=== PATIENT | female | born 1990 | race Caucasian/White ===

== ENCOUNTER 2019-08-15 07:37 | Outpatient (CLI) | payer OTHER, SELFPAY ==
--- NOTE | 2019-08-15 07:56 | US_ITS ---
WS: [id number] OB ultrasound, 08/15/2019 Clinical Data: UTERINE SIZE DATE DISCREPANCY/SECOND TRIMESTER Comparison: None. Findings: There is a single interuterine . heart rate is 164 beats per minute. The presentation is vertex and the placenta is anterior and grade 0. There is a normal amount of amni otic fluid. The estimated gestational age 16w0d is with an FIORDALIZA of approximately 01/30/2020. The estimated weight is 138 g or approximately 5 ounces. US/US OB <= 14 weeks fetus [id number] Impression: 1. Single interuterine . 2. Estimated gestational age of 16w0d with an FIORDALIZA of 01/30/2020. 3. heart rate 164 beats per minute.
== END 2019-08-15 07:38 | disposition home or self-care (01) ==
LOC: RAD 07:43
PROVIDERS: PCP Family Medicine; Visit Provider Family Medicine
DX: O26.842 Uterine size-date discrepancy, second trimester (principal); Z3A.16 16 weeks gestation of pregnancy
CPT/HCPCS: 76801

== ENCOUNTER 2019-09-19 08:47 | Outpatient (CLI) | payer OTHER, SELFPAY ==
--- NOTE | 2019-09-19 08:57 | US_ITS ---
WS: [id number] OB ultrasound, 09/19/2019 Clinical Data: SUPERVISION OF NORMAL Comparison: OB ultrasound, 08/15/2019 Findings: There is a single intrauterine in the vertex presentation. The placenta is Anterior and gra de 0. There is a normal amount of amnionic fluid. The heart rate is 157 beats per minute. Measurements of growth and development: BPD: 4.8 cm HC: 18.3 cm AC: 16.3 cm FL: 3.5 cm The estimated weight is 403 or approximately 14 ounces. The estimated gestational age is 21w0d with an FIORDALIZA of approximately 01/30/2020. anatomy show a normal stomach, kidneys, bladder, cord insertion, three-vessel cord, entire spin e, four-chamber heart, lateral cerebral ventricles, cerebellum and cisterna magna. US/US OB >= 14 weeks fetus [id number] Impression: 1. Single intrauterine in vertex presentation. 2. Estimated gestational age 21w0d with an FIORDALIZA of 01/30/2020. 3. heart rate 157 beats per minute.
== END 2019-09-19 08:48 | disposition home or self-care (01) ==
LOC: RAD 08:52
PROVIDERS: PCP Family Medicine; Visit Provider Nurse Practitioner Family
DX: Z34.92 Encounter for supervision of normal pregnancy, unspecified, second trimester (principal); Z36.9 Encounter for antenatal screening, unspecified; Z3A.21 21 weeks gestation of pregnancy
CPT/HCPCS: 76805

== ENCOUNTER 2020-02-02 19:57 | Inpatient (IN) | payer OTHER, SELFPAY ==
[2020-02-02] VITALS (15 sets, daily range): BP systolic 0–145; BP diastolic 0–76; PULSE 55–81; RESP 15; TEMP 36.8; BMI 29.9
[2020-02-02 21:08] LABS: Basophils % 0.4 %; Eosinophils # 0.1 10^3/uL (0.0-0.8); Eosinophils % 0.7 %; Hematocrit 37.1 % (37.0-47.0); Hemoglobin 12.6 g/dL (11.5-15.3); Lymphocytes # 3.2 10^3/uL (0.8-4.8); Mean Corpuscular Hemoglobin 30.7 pg (28.0-34.0); Mean Corpuscular Volume 90.5 fL (81-99); Mean Platelet Volume 12.5 fL (7.4-10.4); Monocytes # 0.8 10^3/uL (0.2-0.9); Monocytes % 7.6 %; Neutrophils # 6.3 10^3/uL (1.8-7.7); Neutrophils % 60.3 %; Nucleated Red Blood Cells % 0 %; Platelet Count 277 10^3/cmm (130-400); Red Cell Distribution Width 12.9 % (12.1-15.1); White Blood Count 10.5 10^3/uL (4.0-10.0)
[2020-02-02] MEDS: dextrose 5%-lactated ringers 1,000 ML 125 ML IV (22:53)
[2020-02-02] MEDS: oxytocin 30 UNIT/500 ML BAG IV (22:54)
[2020-02-03] VITALS (99 sets, daily range): BP systolic 0–153; BP diastolic 0–78; PULSE 49–98; RESP 16–18; TEMP 36.4–37.1; O2SAT 91–99
--- NOTE | 2020-02-03 01:20 | PC.NURSE ---
Dr. Lynn at bedside
--- NOTE | 2020-02-03 02:17 | PM.OBGYHP ---
Providers/Chief Complaint Admitting Physician: Cleo Lynn MD Primary Care Provider: Cleo Lynn MD Chief Complaint: HPI RESTORATIVE COORDINATOR History of Present Illness Gwen Cooper is a 29 year old female 1 para 0 with an EDC of 01/30/2020. She presented last evening at 40-3/7 weeks gestation for induction of labor secondary to postdates. She began care on 08/03/2019 at 14 weeks gestation, and her course has been completely uncomplicated. Present Details : 1 Para: 0 Date of Last Menstrual Period: 04/25/19 Calculated Date of Delivery: 01/30/20 Gestational Age Based on Last Menstrual Period: 40 Dating criteria OB: LMP confirmed by 2nd trimester US care: good care Ultrasounds: normal mid trimester US Obstetrical complications: none Medical complications OB: none Labs Blood type OB HPI: O (+) positive Rubella: Immune RPR: Negative GBS: Negative HBsAG: Negative Other Lab Information: INITIAL LABS: Blood Type: O+ D (Rh) Type: Positive Antibody Screen: Negative HCT/HB.6/38.3 Pap Test: Normal, high risk HPV negative Rubella: Immune VDRL: Nonreactive Urine Culture/Screen: Negative HBsAg: Negative HIV Counseling/Testing: Negative Hepatitis C: Negative Chlamydia: Negative GC: Negative MSAFP/Multiple Markers: Declined 24-30 WEEK LABS: HCT/HGB: 12.6 Diabetes Screen: 88 Tdap: Received on 10/26/2019 32-36 WEEK LABS: Group B Strep (35-37 weeks): Negative Review of Systems Const: Denies: fever(s) : Denies: vaginal bleeding, vaginal discharge or pelvic pain Medications/Allergies Home Medications Medication Instructions Recorded Confirmed Last Taken Type [id number] 1 tab PO DAILY 02/02/20 02/02/20 02/02/20 History [ Multi] 0930 Allergies Allergy/AdvReac Type Severity Reaction Status Date / Time No Known Allergies Allergy Verified 02/02/20 20:32 PFSH RESTORATIVE COORDINATOR PFSH: Surgical History (Updated 02/03/20 @ 02:26 by Cleo Lynn MD) S/P tonsillectomy Social History (Updated 02/03/20 @ 02:28 by Cleo Lynn MD) Smoking and tobacco status: never smoked Second hand smoke exposure: No Alcohol intake: never Substance/Drug Use: never Adopted: No Caregiver/support person: Yes Lives independently: Yes Household members: significant other Marital status: Number of children: 0 Number of grandchildren: 0 Highest education level completed: High School Graduate service: Yes ([employer]) Other Female Reproductive History: Hx Age of Menarche: 15 Duration of menses: 6-7 days Date of Last Menstrual Period: 04/25/19 Cycle Length: 30 days Menstrual flow: normal/abnormal: normal History History History 1 Term 0 Miscarriages/Ectopic 0 0 Living Children 0 Care FIORDALIZA Calculator Estimated Delivery Date Method Current WG Current Estimate 01/30/20 LMP (Certain) 40w 4d Expected Delivery Route/Plan Vaginal/induction of labor Vitals/I&O/Wt Last Vital Signs Temp 98.3 F 02/02/20 20:42 Pulse 75 02/03/20 01:49 Resp 15 02/02/20 20:42 BP 135/72 02/03/20 01:49 02/02/20 02/02/20 02/03/20 14:59 22:59 06:59 Intake Total 1.600 / 1.600 Balance 1.600 / 1.600 Weight last 48 hrs Weight 169 lb Physical Exam Narrative: EXAM NARRATIVE: For complete physical examination please refer to record. heart tones have a normal baseline with moderate variability, many accelerations and 1 deceleration lasting over a minute with initial monitoring. Patient was spontaneously markie every 2 to 5 minutes and rating them as not painful. Const: COMMON NORMALS: no acute distress, patient oriented x3, no limitations, healthy appearing, alert and well nourished : MANUAL OB EXAM: dilated fingertip, effaced (80%), station -2 and other AMNIOTIC FLUID: no fluid Psych: COMMON NORMALS: mental status grossly normal, Normal thought process present, cooperative, normal affect, speech normal and activity/motor behavior normal MOOD & AFFECT: Yes anxious INSIGHT: Good insight present (Psych) JUDGEMENT: Good judgement present (Psych) Data : 02/02/20 20:27 A&P Assessment and plan (1) Encounter for induction of labor: We had initially discussed Cytotec placement. However, given the deceleration noted with her initial monitoring upon presentation and the fact that she was markie fairly regularly, we decided to observe for an hour. She had no cervical change, therefore low-dose Pitocin was begun. It has been titrated gradually, and she is markie every 2 minutes of moderate to strong intensity. She declines need for pain medication at this time. She actually just experienced spontaneous rupture of membranes productive of clear fluid at 220 this morning. Status: Acute (2) 40 weeks gestation of : Status: Acute (3) Joya gestation with first : Status: Acute Attestations Medical Necessity Statement*: As patient is undergoing induction of labor for postdates and has just experienced spontaneous rupture of membranes, she will need continued inpatient hospitalization. Coding Level of Care Code Acute Passport Application Examiner for Chg Fwd Diagnoses Encounter for induction of labor Z34.90 40 weeks gestation of Z3A.40 Joya gestation with first Z34.90
[2020-02-03] MEDS: ondansetron 2 mg/ML SDV 2 mL 4 MG IVP (02:57)
[2020-02-03] MEDS: fentaNYL 50 mcg/mL INJ 2mL IV ×2 (05:09→05:44)
[2020-02-03] MEDS: lactated ringers 1,000 ML 999 ML IV (05:45)
--- NOTE | 2020-02-03 06:29 | P.ANESASSM_ITS ---
Pre-Anesthetic Assessment Pre-Anesthetic Assessment: Height/Weight: Height 1.6 m Weight 76.657 kg Temp Pulse Resp BP 98.2 F 63 18 117/59 02/03/20 02:30 02/03/20 03:21 02/03/20 05:44 02/03/20 03:21 Preop Diagnosis: Labor Pains Proposed Procedure: epidural Was Beta Usama taken within 24 hours: N/A Social: Social History: No alcohol and No tobacco Exam: Pre-Anes Outpt Exam: alert, oriented x 3, clear to auscultation bilaterally and regular rate & rhythm Airway: Submandibular: WNL Cervical ROM: WNL MP: 1 Dentition: Full Pulmonary: Pulmonary: None reported CV/HEM: CV/HEM: None reported : : None reported Hepatic: Hepatic: None reported GI: GI: None reported Metabolic: Metabolic: None reported Musc/skel: Musc/skel: None reported Neuropsych: Neuropsych: None reported Anesthetic Plan: ASA status: 2 Anesthesia: Eval. for regional block and R egional (specify below) Risk of > 500 ml blood loss (7ml/kg in children): No Meds/Allergies Current Medications: Current Medications Generic Name Dose Route Start Last Admin Trade Name Freq PRN Reason Stop Dose Admin Fentanyl 25 - 100 mcg 02/02/20 20:42 02/03/20 05:44 Sublimaze IV 50 mcg Q1H PRN Administration SEVERE PAIN Dextrose/Lactated Ringer's 1,000 mls @ 125 m ls/hr 02/02/20 20:42 02/03/20 05:46 Dextrose 5%-Lact ated Ringers IV Infused .Q8H PRN Infusion LABOR INDUCTION Oxytocin 30 unit in 500 ml s @ 1 mls/hr 02/02/20 22:07 02/02/20 23:58 Pitocin IV 3 milliunit/min .Q24H PRN 3 mls/hr LABOR INDUCTION Titration Protocol 1 MILLIUNIT/MIN Ondansetron HCl 4 mg 02/02/20 20:42 02/03/20 02:57 Zofran IVP 4 mg Q4H PRN Administration NAUSEA AND VOMITI NG PFSH Anesthesia PFSH: Surgical History (Updated 02/03/20 @ 02:26 by Cleo Lynn MD) S/P tonsillectomy Social History (Updated 02/03/20 @ 02:28 by Cleo Lynn MD) Smoking and tobacco status: never smoked Second hand smoke exposure: No Alcohol intake: never Substance/Drug Use: never Adopted: No Caregiver/support person: Yes Lives independently: Yes Household members: significant other Marital status: Number of children: 0 Number of grandchildren: 0 Highest education level completed: High School Graduate service: Yes ([employer]) Female Reproductive History: Date of last menstrual period: 04/25/19 : 1 Data Anesthesia CBC & Chem 7: 02/02/20 20:27 Other Labs: Laboratory Results - last 48 hr 02/02/20 20:27 WBC 10.5 H RBC 4.10 Hgb 12.6 Hct 37.1 MCV 90.5 MCH 30.7 MCHC 34.0 RDW 12.9 Plt Count 277 MPV 12.5 H Neut % (Auto) 60.3 Lymph % (Auto) 30.0 Beadle % (Auto) 7.6 Eos % (Auto) 0.7 Baso % (Auto) 0.4 Neut # (Auto) 6.3 Lymph # (Auto) 3.2 Beadle # (Auto) 0.8 Eos # (Auto) 0.1 Baso # (Auto) 0.0 Nucleated RBC % (auto) 0 Nucleated RBCs # 0.0 Cardiac Studies: No Data to Display
--- NOTE | 2020-02-03 07:08 | ANES.PROC ---
Anesthesia Procedures Procedure/Date: 02/03/20 epidural Procedure Narrative: during the First insertion of epidural catheter blood was noted to be in the epidural tubing. Tubing removed and replaced at the same level. patient tolerated well, epidural complete, bolus given, epidural pump initiated with ORDER TO DELIVERY SUPERVISOR education given, vitals taken during procedure using OBIX system and satisfactory throughout, patient admits to decrease pain, report of procedure to OB RN Epidural: Time Out Performed: Yes Consents Signed: Procedure Consent Consent: requested by attending/covering physician, from patient, risks and benefits reviewed and patient agrees to proceed Lumbar Level: L3-L4 Epidural position: sitting Epidural procedure: sterile prep of area, 1% lidocaine to numb the area (3 mL), 18 g needle, negative for paresthesia passed, neg for paresthesia, test dose given, 1.5% xylocaine 1:200k epi (5 mL), 0.2% Ropivacaine bolus ml (5 mL), placed PCEA, no systemic response, sterile dressing applied, L.U.D. no apparent complications and 0.2% Ropiavacaine @ mls/hr (13 mL/hr) Additional Comments:
[2020-02-03] MEDS: dextrose 5%-lactated ringers 1,000 ML 125 ML IV (07:31)
--- NOTE | 2020-02-03 12:21 | P.PCNOB_ITS ---
Delivery Note: Date of delivery: February 03, 2020 Pre-Delivery Course: Patient arrived last evening for induction of labor, initially with Cytotec. However, baby had a deceleration the heart rate after mother emptied her bladder. This prompted us to switch our plan to something more easily reversible such as Pitocin. She began Pitocin last evening and increased it to 3 milliunits/min to obtain an every 2 to 3-minute contraction pattern. Patient experienced spontaneous rupture of membranes at 220 this a.m. and it was a moderate amount of clear fluid. She continued to dilate and opted for epidural anesthesia at about 5-1/2 cm dilated and over 90% effaced. She received this and became comfortable and then gradually dilated until she was completely dilated at 11:24 AM. Delivery: She began the active portion of the second stage of her labor at 11:40 AM after 16 minutes of laboring down. After 18 minutes of pushing she delivered a viable male infant at 11:58 AM. Head was straight OA and took appro ximately 3 sets of pushes to completely deliver his head. Once it was delivered the remainder of his body delivered quite handily. Bulb suctioning was done upon delivery of his head and of his body. There was no nuchal cord. Baby was placed on maternal abdomen while cord was clamped by myself, cut by the father the baby and cord blood obtained. Baby was taken to the warmer for routine resuscitative measures. Gentle traction was placed on the cord, and Pitocin was given in routine doses intravenously. The placenta delivered intact at 1206 with some maternal expulsive effort. The fundus was found to be firm, and perineum and cervix were inspected as well. There was an anterior periurethral abrasion as well as a left-sided periurethral abrasion noted which needed no repair. There was also a first-degree midline posterior distal vaginal laceration which was bleeding and was repaired with 2-0 chromic in single layer running stitch fashion. Her epidural was used as anesthesia. Post-Delivery Status: Mother and baby were stable. Estimated blood loss 150 mL. Baby had Apgars of 9 at 1 minute and 9 at 5 minutes and weighed 7 pounds 12 ounces/352 5 g and was 19 inches in length. A&P Assessment and plan (1) Encounter for induction of labor: Status: Acute (2) 40 weeks gestation of : Status: Acute (3) Joya gestation with first : Status: Acute (4) Spontaneous rupture of membranes: Status: Acute (5) Spontaneous vaginal delivery: Routine orders Status: Acute (6) Periurethral abrasion, delivered, current hospitalization: Status: Acute (7) Obstetric vaginal laceration: Status: Acute Coding Level of Care Code Acute Loom Winder Tender for Chg Fwd Diagnoses Encounter for induction of labor Z34.90 40 weeks gestation of Z3A.40 Joya gestation with first Z34.90 Spontaneous rupture of membranes Spontaneous vaginal delivery O80 Periurethral abrasion, delivered, current hospitalization O71.82 Obstetric vaginal laceration O71.4
--- NOTE | 2020-02-03 15:35 | PC.NURSE ---
pt up to bathroom without difficulty. void 350mL. erica care education. dermoplast spray discussed/demonstrated. pad and gown change.
[2020-02-03] MEDS: lanolin oint 7 gm 1 APPLIC TOPICAL (15:47)
[2020-02-03] MEDS: benzocaine-menthol 78 gm Canister 1 SPRAY TOPICAL (15:48)
--- NOTE | 2020-02-03 16:11 | PC.NURSE ---
pt ambulated to room 205. oriented to room/call light. proud parent pack and feeding sheet discussed.
[2020-02-04 00:43] LABS: Hematocrit 32.1 % (37.0-47.0); Hemoglobin 10.9 g/dL (11.5-15.3); Mean Corpuscular Hemoglobin 31.5 pg (28.0-34.0); Mean Corpuscular Volume 92.8 fL (81-99); Mean Platelet Volume 12.4 fL (7.4-10.4); Platelet Count 209 10^3/cmm (130-400); Red Blood Count 3.46 10^6/uL (4.1-5.3); Red Cell Distribution Width 13.2 % (12.1-15.1); White Blood Count 14.2 10^3/uL (4.0-10.0)
[2020-02-04 06:45] VITALS: BP 112/66; PULSE 69; RESP 16; TEMP 36.5; O2SAT 97
--- NOTE | 2020-02-04 09:08 | P.DS_ITS ---
Discharge Providers PIECE CUTTER Date of Admission: 02/02/20 20:40 Date of Discharge: 02/04/20 Attending Provider at Admission: Cleo Lynn MD Attending Provider at Discharge: Cleo Lynn MD Primary Care Provider: Cleo Lynn MD Diagnoses at Discharge Discharge Diagnosis (1) Encounter for induction of labor: Status: Acute (2) 40 weeks gestation of : Status: Acute (3) Joya gestation with first : Status: Acute (4) Spontaneous rupture of membranes: Status: Acute (5) Spontaneous vaginal delivery: Status: Acute (6) Periurethral abrasion, delivered, current hospitalization: Status: Acute (7) Obstetric vaginal laceration: Status: Acute Reason for Visit Reason for Visit: Hospital Course Hospital Course: Patient arrived the evening of 02/02/2020 for induction of la bor at 40-3/7 weeks gestation. The plan was for Cytotec, however, baby had a deceleration and heart rate after mother emptied her bladder, and we changed our plans to incorporate low-dose Pitocin. 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 She experienced spontaneous rupture of membranes shortly after 2 AM. She opted for epidural anesthesia at approximately 5-1/2 cm dilated and then gradually dilated to complete. After a less than 20 minute active portion of the second stage of labor she delivered a viable male weighing 7 pounds 12 ounces with Apgars of 9 at 1 minute and 9 at 5 minutes. Placenta delivered uneventfully, and she sustained 2 periurethral abrasions which did not need any intervention and a midline posterior distal vaginal laceration which was first- degree and was bleeding, so it was repaired with 2-0 chromic in single layer running stitch fashion. She sustained about 150 mL blood loss. Discharge Summary: day 1 she is feeling good. She states that her bleeding is about like a period at this point and that she has cramping while breast-feeding. She says that she has no concerns with baby and that he is breast-feeding well. She thinks she would like the ParaGard IUD, and we will refer her to women's for its placement when she comes in for baby's visit. She has ibuprofen for home use as well as acetaminophen and vitamins to take as long as she is breast-feeding. Information Peripartum Data: Delivery Method: Vaginal Laceration description: Superficial (1 anterior and one left periurethral abrasion) Episiotomy description: None complications: none Physical Exam Const: COMMON NORMALS: no acute distress, patient oriented x3, no limitations, healthy appearing, alert and well nourished Neck/C-Spine: COMMON NORMALS: no JVD Resp: COMMON NORMALS: normal respiratory effort, No retractions, No use of accessory muscles and clear to auscultation bilaterally AUSCULTATION: clear to auscultation bilaterally Cardio: COMMON NORMALS: no JVD, regular rate, regular rhythm, S1 normal heart sound present, S2 normal heart sound present, No gallops present (Cardio), No clicks present (Cardio), No murmurs present (Cardio), No rub (Cardio) and Peripheral pulses 2+ throughout RATE: regular rate RHYTHM: regular rhythm HEART SOUNDS: S1 normal heart sound present and S2 normal heart sound present PERIPHERAL PULSES: Peripheral pulses 2+ throughout : UTERUS PALPATION: Yes Other OB uterine findings (Fundus is firm and 2 fingerbreadths below the umbilicus and nontender) Extremity: COMMON NORMALS: no pedal edema Neuro: COMMON NORMALS: patient oriented x3 SENSORIUM/ORIENTATION: Yes alert Urinary Catheter Management^: [place]: Cath Placed During This Visit: yes, but has since been removed by the nurse Reason for Continuing Indwelling Catheter: Decision to DC Catheter Urinary Catheter Date of Insertion: 02/03/20 Urinary Catheter Time of Insertion: 07:55 Date Urinary Catheter Removed: 02/03/20 Time Urinary Catheter Discontinued: 11:35 Discharge Data Data Completed and Pending: Labs from last 24 hours 02/04/20 00:25 WBC 14.2 H RBC 3.46 L Hgb 10.9 L Hct 32.1 L MCV 92.8 MCH 31.5 MCHC 34.0 RDW 13.2 Plt Count 209 MPV 12.4 H Vitals: Last Vital Signs Temp 97.7 F 02/04/20 06:45 Pulse 69 02/04/20 06:45 Resp 16 02/04/20 06:45 BP 112/66 02/04/20 06:45 Pulse Ox 97 02/04/20 06:45 Discharge Plan Discharge Patient Disposition: Home, Self-Care Condition: Stable Prescriptions: Continued Multi 27-800 mg-mcg Tablet 1 tab PO DAILY RF: 0 Discharge Orders: Discharge Order (Routine); Ordered 02/04/20 Ordered By: Cleo Lynn Referrals: Cleo Lynn MD [Primary Care Provider] - 6 Weeks (We will refer her to women's for ParaGard consultation when she brings baby in for her visit. She may also schedule her visit with [facility] if insurance will cover a 5- week visit, if not, she can schedule with [facility] or Eunice for the visit at 6 weeks.) Discharge Diet: Usual diet Discharge Activity: Limit activity as instructed Discharge Attestations PIECE CUTTER Time Spent in Discharge Care*: less than 30 min Specific Discharge Activities: Specific discharge activities: educating patient, documenting/other paperwork and evaluating patient/reviewing data Status at Discharge: Cognitive status at discharge: cognitively intact , Behavioral status at discharge: cooperative , Functional status at discharge: independent ambulation Overall status at discharge: patient is progressing back to baseline Coding Level of Care Code Acute Environmental Aid for Chg Fwd Diagnoses Encounter for induction of labor Z34.90 40 weeks gestation of Z3A.40 Joya gestation with first Z34.90 Spontaneous rupture of membranes Spontaneous vaginal delivery O80 Periurethral abrasion, delivered, current hospitalization O71.82 Obstetric vaginal laceration O71.4
[2020-02-04] MEDS: prenatal vitamin Capsule 1 CAP PO (09:22)
[2020-02-04] MEDS: docusate sodium 100 mg Capsule PO (09:23)
[2020-02-04 09:30] VITALS: BP 114/64; PULSE 66; RESP 16; TEMP 36.7; O2SAT 98
[2020-02-04 13:25] VITALS: BP 109/72; PULSE 64; RESP 17; TEMP 36.7
[2020-02-04 14:00] VITALS: BP 109/72; PULSE 64; RESP 17; TEMP 36.7
== END 2020-02-04 13:52 | disposition home or self-care (01) | DRG 807 ==
PROVIDERS: Admitting Provider Family Medicine; PCP Family Medicine; Visit Provider Family Medicine
DX: O48.0 Post-term pregnancy (principal); Z37.0 Single live birth; Z3A.40 40 weeks gestation of pregnancy; O76 Abnormality in fetal heart rate and rhythm complicating labor and delivery; O70.0 First degree perineal laceration during delivery
CPT/HCPCS: 12345; 36415; 51702; 59025; 59409; 85025; 85027; 96374; 96375; G0378; G0379; J2405; J2795; J3010

== ENCOUNTER → 2020-04-11 13:40 | Outpatient (BNVA) | payer OTHER, SELFPAY | PROVIDERS: PCP Family Medicine; Visit Provider Obstetrics & Gynecology | DX: Z01.812 Encounter for preprocedural laboratory examination (principal) | CPT/HCPCS: 81025 ==

== ENCOUNTER → 2020-08-27 09:28 | Outpatient (BNVA) | payer OTHER, SELFPAY | PROVIDERS: Visit Provider Obstetrics & Gynecology | DX: Z20.9 Contact with and (suspected) exposure to unspecified communicable disease (principal); Z30.431 Encounter for routine checking of intrauterine contraceptive device | CPT/HCPCS: 87635; 87806 ==

== ENCOUNTER 2022-12-31 06:20 | Outpatient (CLI) | payer MEDICAID, SELFPAY ==
--- NOTE | 2022-12-31 | US_ITS ---
WS: [id number] EARLY OBSTETRICAL ULTRASOUND (<14 WEEKS). HISTORY: EVAL FOR EARLY IUP COMPARISON: None available. Abnormal single intrauterine gestational sac. Sac is elongated extending towards the endocervical can al. Normal decidual reaction is not apparent. Within the elongated portion of the gestational sac is what is probably the crown-rump length. No cardiac activity is identified. Gestation based upon the c rown-rump length is 6 weeks and 5 days. No free fluid. No adnexal mass. There is a small amount of fluid noted in the cervix also. Corpus lut eal cyst RIGHT ovary measures 2.6 x 2.4 x 2.4 cm. US/US OB <=14 wk fetus w transvag IMPRESSION: 1. Abnormal intrauterine gestational sac. Elongated gestational sac extending toward the cervix with a small amount of fluid in the cervix. Findings suggesti ng impending spontaneous . 2. No cardiac activity is identified within what is probably the pole in the abnormal gestational sac. Measurement corresponds to an age of 6 weeks and 5 days.
== END 2022-12-31 06:21 | disposition home or self-care (01) ==
LOC: RAD 06:22
PROVIDERS: PCP Family Medicine; Visit Provider Family Medicine
DX: Z34.81 Encounter for supervision of other normal pregnancy, first trimester (principal)
CPT/HCPCS: 76801; 76817

== ENCOUNTER 2023-01-19 08:43 | Outpatient (CLI) | payer MEDICAID, SELFPAY ==
--- NOTE | 2023-01-19 08:53 | US_ITS ---
WS: [id number] US transvaginal [id number] HISTORY: MISCARRIAGE COMPARISON: 12/31/2022 Uterus: 9.2 cm x 6.5 cm x 4.9 cm. Anteverted uterus. Gestational sac previously noted in the endometrial cavity has changed significant ly. There is no residual gestational sac in the central uterine cavity. There is fluid now present wi thin the cervix. No pole. Endometrium: 1.3 cm. Mildly thickened and heterogeneous endometrium. No residual gestational sac. Right ovary: 3.0 cm x 1.9 cm x 2.4 cm. Normal size and vascularity, no cystic or solid masses. Left ovary: 2.3 cm x 2.3 cm x 1.5 cm. Normal size and vascularity, no cystic or solid masses. No free fluid in the cul-de-sac. US/US transvaginal [id number] IMPRESSION: 1. Continued evolution of a spontaneous . No gestational sac remains a long the endometrial canal. There is now mild residual soft tissue thickening. 2. Small amount of fluid persists along the cervical canal. 3. No pole or cardiac activity identified.
== END 2023-01-19 08:44 | disposition home or self-care (01) ==
LOC: RAD 08:44
PROVIDERS: PCP Family Medicine; Visit Provider Family Medicine
DX: O03.9 Complete or unspecified spontaneous abortion without complication (principal)
CPT/HCPCS: 76830

== ENCOUNTER 2023-12-09 13:48 | Outpatient (CLI) | payer OTHER, MEDICAID, SELFPAY ==
--- NOTE | 2023-12-09 14:04 | USR_ITS ---
PROCEDURE INFORMATION: Exam: US First Trimester, Transabdominal and US , Transvaginal Exam date and time: 12/09/2023 2:25 PM Age: 33 years old Clinical indication: Screening exam; Routine US, uterus; Additional info: First trimester LABS AND CLINICAL REPORTS: Last menstrual period start date: 09/02/2023 Gestational age (Established): 14 w 0 d Estimated due date (Established): 06/08/2024 TECHNIQUE: Imaging protocol: Real-time transabdominal obstetrical ultrasound of the maternal pelvis and a first trimester , less than 14 weeks 0 days, with image documentation. Transvaginal imaging was used for better evaluation of the fetus, adnexa, and/or cervix. COMPARISON: US OB <=14 wk fetus w transvag 12/31/2022 6:48 AM FINDINGS: GESTATION: Gestation: There is an intrauterine with crown-rump length measuring 72 mm. Embryonic/ heart rate: 157 bpm Extra-embryonic membranes/Placenta: Grossly unremarkable. No evidence of subchorionic hemorrhage. BIOMETRY: Gestational age (AUA): 13 weeks 3 days, within 4 days of gestational age by LMP. Mean sac diameter: 7.38 cm. MATERNAL: Uterus: Uterus measures 15.8 x 10.6 x 8.3 cm. Cervix is closed. Right ovary/adnexa: Right ovary measures 2.8 x 2.7 x 2.1 cm. Flow is visualized. No evidence of adnexal mass. Left ovary/adnexa: Left ovary measures 2.8 x 2.1 x 1.9 cm. Flow is visualized. No evidence of adnexal mass. Intraperitoneal space: No significant pelvic free fluid. US/US OB <= 14 weeks fetus [id number] IMPRESSION: 1. Intrauterine with an estimated gestational age 13 weeks 3 days, corresponding to an estimated delivery June 12, 2024.
== END 2023-12-09 13:49 | disposition home or self-care (01) ==
PROVIDERS: PCP Family Medicine; Visit Provider Family Medicine
DX: Z34.81 Encounter for supervision of other normal pregnancy, first trimester (principal); Z3A.13 13 weeks gestation of pregnancy
CPT/HCPCS: 76801

== ENCOUNTER 2024-01-20 13:20 | Outpatient (CLI) | payer OTHER, MEDICAID, SELFPAY ==
--- NOTE | 2024-01-20 13:25 | USR_ITS ---
PROCEDURE INFORMATION: Exam: US , Limited Exam date and time: 01/20/2024 1:41 PM Age: 33 years old Clinical indication: Screening exam; Routine US, uterus; Additional info: Anatomy check/second trimester normal LABS AND CLINICAL REPORTS: Gestational age (Established): 20 w 0 d Estimated due date (Established): 06/08/2024 TECHNIQUE: Imaging protocol: Real-time ultrasound of the maternal uterus with image documentation. Exam focused on the clinical indication. COMPARISON: US OB <= 14 weeks fetus [id number] 12/09/2023 2:25 PM FINDINGS: Gestation: Single viable intrauterine in a cephalic position at the present time. heart rate: 150 bpm Amniotic fluid index: RHODA is 13.51 cm. BIOMETRY: Estimated weight: 290.88 g Biparietal diameter (BPD): 4.65 cm. EGA (BPD) is 20 w 0 d. 52.4 % percentile Head circumference (HC): 16.03 cm. EGA (HC) is 18 w 6 d. 4.9 % percentile Abdominal circumference (AC): 13.89 cm. EGA (AC) is 19 w 2 d. 22.4 % percentile Femur length (FL): 3.1 cm. EGA (FL) is 19 w 4 d. 28.5 % percentile HC/AC: 1.15. (Normal range: 1.09 - 1.26) FL/HC: 19.34. (Normal range: 16.3 - 18.73) FL/BPD: 66.67 FL/AC: 22.32 MATERNAL: Cervix: Cervical length measures 5.2 cm. anatomy: head, spine, stomach, kidneys, urinary bladder, anterior abdominal wall, three-vessel cord, upper extremities and lower extremities were normally visualized. No abnormalities were detected. US/US OB >= 14 weeks fetus [id number] IMPRESSION: Single viable intrauterine whose gestational age based on present parameters is 19 weeks 2 days. No abnormalities detected.
== END 2024-01-20 13:21 | disposition home or self-care (01) ==
LOC: RAD 13:21
PROVIDERS: PCP Family Medicine; Visit Provider Family Medicine
DX: Z34.82 Encounter for supervision of other normal pregnancy, second trimester (principal); Z3A.19 19 weeks gestation of pregnancy
CPT/HCPCS: 76805

== ENCOUNTER 2024-03-21 06:51 | Outpatient (CLI) | payer OTHER, MEDICAID, SELFPAY ==
--- NOTE | 2024-03-21 07:30 | USR_ITS ---
PROCEDURE INFORMATION: Exam: US , Follow up Exam date and time: 03/21/2024 7:21 AM Age: 33 years old Clinical indication: Screening exam; Routine US, uterus; Additional info: Growth scan LABS AND CLINICAL REPORTS: Gestational age (Established): 28 w 5 d Estimated due date (Established): 06/08/2024 TECHNIQUE: Imaging protocol: Transabdominal ultrasound of the uterus, real time with image documentation. Follow-up (eg, re-evaluation of size by measuring standard growth parameters and amniotic fluid volume, re-evaluation of organ system(s) suspected or confirmed to be abnormal on a previous scan). COMPARISON: US OB >= 14 weeks fetus [id number] 01/20/2024 1:41 PM FINDINGS: Gestation: A single intrauterine gestation is seen. heart rate: 150 bpm presentation and position: Cephalic presentation. Placenta: Posterior placenta. BIOMETRY: Estimated weight: 1086.4 g. EFW, 7.5 percentile. Biparietal diameter (BPD): 7.03 cm. EGA (BPD) is 28 w 2 d. 23.3 % percentile Head circumference (HC): 25.66 cm. EGA (HC) is 27 w 6 d. 5.2 % percentile Abdominal circumference (AC): 23.2 cm. EGA (AC) is 27 w 4 d. 13.1 % percentile Femur length (FL): 5.08 cm. EGA (FL) is 27 w 2 d. 5.9 % percentile HC/AC: 1.11. (Normal range: 1.03 - 1.22) FL/HC: 19.8. (Normal range: 18.74 - 20.54) FL/BPD: 72.26. (Normal range: 71 - 87) FL/AC: 21.9. (Normal range: 20 - 24) MATERNAL: Cervix: Cervical length measures 0 cm. US[place] [id number] IMPRESSION: A single intrauterine gestation is seen. Cephalic presentation. Posterior placenta.
== END 2024-03-21 06:52 | disposition home or self-care (01) ==
LOC: RAD 06:51
PROVIDERS: PCP Family Medicine; Visit Provider Family Medicine
DX: O26.842 Uterine size-date discrepancy, second trimester (principal)
CPT/HCPCS: 76816

== ENCOUNTER 2024-04-18 06:32 | Outpatient (CLI) | payer OTHER, SELFPAY ==
--- NOTE | 2024-04-18 07:00 | USR_ITS ---
PROCEDURE INFORMATION: Exam: US , Follow up Exam date and time: 04/18/2024 6:41 AM Age: 33 years old Clinical indication: Screening exam; Routine US, uterus; Additional info: Growth scan LABS AND CLINICAL REPORTS: Gestational age (Established): 32 w 5 d Estimated due date (Established): 06/08/2024 TECHNIQUE: Imaging protocol: Transabdominal ultrasound of the uterus, real time with image documentation. Follow-up (eg, re-evaluation of size by measuring standard growth parameters and amniotic fluid volume, re-evaluation of organ system(s) suspected or confirmed to be abnormal on a previous scan). COMPARISON: [place] [id number] 03/21/2024 7:21 AM FINDINGS: Gestation: Live intrauterine gestation. heart rate: 131 bpm . presentation and position: Cephalic presentation. Placenta: Posterior placenta. BIOMETRY: Estimated due date (AUA): Estimated date of delivery by ultrasound 06/13/2024. Estimated date of delivery by clinical information of 06/08/2024 Estimated weight: 1840.07 g. EFW by AC, BPD, FL, HC, 16.4 percentile Biparietal diameter (BPD): 7.98 cm. EGA (BPD) is 32 w 0 d. 23.5 % percentile Head circumference (HC): 29.36 cm. EGA (HC) is 32 w 3 d. 10.2 % percentile Abdominal circumference (AC): 27.93 cm. EGA (AC) is 32 w 0 d. 28.5 % percentile Femur length (FL): 6 cm. EGA (FL) is 31 w 2 d. 8.1 % percentile HC/AC: 1.05. (Normal range: 0.96 - 1.14) FL/HC: 20.44. (Normal range: 19.1 - 21.3) FL/BPD: 75.19. (Normal range: 71 - 87) FL/AC: 21.48. (Normal range: 20 - 24) MATERNAL: Cervix: Cervical length measures 4.6 cm. Other findings: Estimated age by ultrasound 32 weeks and 0 days. Estimated age by clinical information 32 weeks and 5 days. [place] [id number] IMPRESSION: Again fetus demonstrates low percentile estimated weight, length, head circumference (please see above), however within normal ranges by dates. Internal dates are congruent. Umbilical Doppler examination may be of further clinical benefit. Consider maternal medicine in the correct clinical context.
== END 2024-04-18 06:33 | disposition home or self-care (01) ==
LOC: RAD 06:32
PROVIDERS: PCP Family Medicine; Visit Provider Family Medicine
DX: O26.842 Uterine size-date discrepancy, second trimester (principal)
CPT/HCPCS: 76816

== ENCOUNTER 2024-05-19 16:31 | Outpatient (CLI) | payer OTHER, MEDICAID, SELFPAY ==
--- NOTE | 2024-05-19 16:38 | USR_ITS ---
PROCEDURE INFORMATION: Exam: US , Follow up Exam date and time: 05/19/2024 4:43 PM Age: 33 years old Clinical indication: Screening exam; Routine US, uterus; Additional info: Growth check LABS AND CLINICAL REPORTS: Gestational age (Established): 36 w 3 d Estimated due date (Established): 06/13/2024 TECHNIQUE: Imaging protocol: Transabdominal ultrasound of the uterus, real time with image documentation. Follow-up (eg, re-evaluation of size by measuring standard growth parameters and amniotic fluid volume, re-evaluation of organ system(s) suspected or confirmed to be abnormal on a previous scan). COMPARISON: [place] [id number] 04/18/2024 6:41 AM FINDINGS: Gestation: Single live intrauterine gestation. heart rate: 129 bpm. presentation and position: Vertex. Placenta: Posterior. Amniotic fluid index: RHODA is 10.6 cm. BIOMETRY: Gestational age (AUA): 36 weeks 1 day Estimated due date (AUA): 06/15/2024 Estimated weight: 2834.62 g. EFW by AC, BPD, FL, HC, [place] 1985, 42% percentile Biparietal diameter (BPD): 8.98 cm. EGA (BPD) is 36 w 3 d. 59.6 % percentile Head circumference (HC): 32.36 cm. EGA (HC) is 36 w 4 d. 25.1 % percentile Abdominal circumference (AC): 32.46 cm. EGA (AC) is 36 w 3 d. 60.4 % percentile Femur length (FL): 6.81 cm. EGA (FL) is 35 w 0 d. 14.1 % percentile HC/AC: 1. (Normal range: 0.92 - 1.08) FL/HC: 21.04. (Normal range: 20.2 - 22.17) FL/BPD: 75.84. (Normal range: 71 - 87) FL/AC: 20.98. (Normal range: 20 - 24) US/[place] [id number] IMPRESSION: Single live intrauterine gestation with estimated age of 36 weeks 1 day and weight of 2834.62 g.
== END 2024-05-19 16:32 | disposition home or self-care (01) ==
LOC: RAD 16:32
PROVIDERS: PCP Family Medicine; Visit Provider Family Medicine
DX: P05.9 Newborn affected by slow intrauterine growth, unspecified (principal)
CPT/HCPCS: 76816

== ENCOUNTER 2024-06-05 10:10 | Outpatient (CLI) | payer OTHER, MEDICAID, SELFPAY ==
[2024-06-05 10:29] VITALS: BP 138/79; PULSE 90
[2024-06-05 10:40] VITALS: BMI 32.5
[2024-06-05 10:49] VITALS: RESP 18
== END 2024-06-05 11:07 | disposition home or self-care (01) ==
LOC: OPOB 10:16 → OBGYN 10:17
PROVIDERS: PCP Family Medicine; Visit Provider Family Medicine
DX: O26.899 Other specified pregnancy related conditions, unspecified trimester (principal); Z3A.00 Weeks of gestation of pregnancy not specified; R10.9 Unspecified abdominal pain; N89.8 Other specified noninflammatory disorders of vagina
CPT/HCPCS: 59025; 99211

== ENCOUNTER 2024-06-05 15:43 | Inpatient (IN) | payer OTHER, MEDICAID, SELFPAY ==
[2024-06-05] VITALS (13 sets, daily range): BP systolic 115–142; BP diastolic 59–77; PULSE 71–86; RESP 18; TEMP 36.9–37.7
--- NOTE | 2024-06-05 15:48 | PM.OBGYHP ---
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 care complicated by AMA. There was some question of IUGR on growth US in the 3rd trimester however resolved on follow-up and with re-evaluation of her dating. Reports gradually increasing contractions since this morning and SROM approx 1 hour prior to delivery. Labs Blood type OB HPI: O (+) positive Rubella: Immune RPR: Negative GBS: Negative HBsAG: Negative Other Lab Information: HCV Ab negative HIV negative GC/Chlam negative INitial H/H 12.9g/dL/37.4% Urine Cx negative Pap smear NILM, HPV negative 1hr GTT passed 3rd trimester H/H 11.8 g/dL/33.7% Review of Systems Narrative: Unable to obtain as patient had just delivered on my presentation to room Medications/Allergies Home Medications Medication Instructions Recorded Confirmed Last Taken Type levonorgestrel 21 mcg/24 hr (up to intrauterine 05/13/20 03/31/21 Unknown History 8 years) 52 mg intrauterine device (Mirena) Allergies Allergy/AdvReac Type Severity Reaction Status Date / Time No Known Allergies Allergy Verified 03/31/21 15:36 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 PFSH: Surgical History S/P tonsillectomy Family History Father Hypertension Denies family history of Diabetes Clotting disorder Hyperlipidemia Anesthesia complication Bleeding disorder Stroke Social History Smoking and tobacco/nicotine status: never used tobacco/nicotine Alcohol intake: never Substance/Drug Use: never Other Female Reproductive History: Hx Age of Menarche: 15 Duration of menses: 6-7 days Cycle Length: 30 days History History History 1 Term 1 0 Miscarriages/Ectopic 0 Living Children 1 Physical Exam Narrative: Alert and oriented Exam limited as I arrived to room just after delivery of , patient in lithotomy position with umbilical cord clamped and placenta undelivered. Respirations even and without respiratory distress No LE edema Data 06/05/24 15:50 Results Labs OB ([facility]): Obstetrics US 05/19/24 Blood Type O Positive 06/05/24 Antibody Screen Negative 06/05/24 Hct 34.0 % (36-47) L 06/05/24 Hgb 11.20 g/dL (11.27-16.99) L 06/05/24 Rho(D) Type Rh positive 06/05/24 Plt Count 313 10^3/cmm (157-399) 06/05/24 A&P Assessment and plan (1) Spontaneous onset of labor: (2) Spontaneous rupture of membranes: Plan Admitted for labor. Routine CBC, blood typing. Patient delivered infant prior to my arrival. See delivery note and nursing documentation for further details. Attestations Medical Necessity Statement*: Gwen Farris's hospital stay will require greater than 2 midnights for routine delivery and care Coding Level of Care Code Acute Code for Chg Fwd Diagnoses Spontaneous onset of labor Spontaneous rupture of membranes
[2024-06-05] MEDS: lactated ringers 1,000 ML 999 ML IV (15:59)
[2024-06-05 16:02] LABS: Basophils % 0.2 %; Eosinophils # 0.1 10^3/uL (0.0-0.8); Eosinophils % 0.4 %; Lymphocytes # 4.3 10^3/uL (0.8-4.8); Lymphocytes % 33.3 %; Mean Corpuscular HGB Conc 32.9 g/dL (30-55); Mean Corpuscular Hemoglobin 28.2 pg (27-33); Mean Corpuscular Volume 85.6 fl (85-98); Mean Platelet Volume 12.3 fL (7.4-10.4); Monocytes # 0.9 10^3/uL (0.2-0.9); Neutrophils # 7.51 10^3/uL (1.8-7.7); Neutrophils % 58.1 %; Nucleated Red Blood Cells % 0 %; Platelet Count 313 10^3/cmm (157-399); Red Blood Count 3.97 10^6/uL (3.85-5.65); White Blood Count 12.92 10^3/uL (3.29-11.43)
[2024-06-05] MEDS: oxytocin 30 UNIT/500 ML BAG 600 UNIT IV (16:22)
[2024-06-05 16:36] LABS: Slide Review Slide Review Perform
--- NOTE | 2024-06-05 16:59 | PM.DELIVERY ---
Delivery Note: Date of delivery: June 05, 2024 Pre-delivery diagnoses: Spontaneous labor Term Spontaneous rupture of membranes Post-delivery diagnoses: Term delivery of viable male Procedure: Spontaneous Vaginal Delivery Delivering Physician: Catherine Sanchez DO Estimated blood loss (mL): 150 Pre-Delivery Course: Admitted at approx 5cm dilated with SROM prior to arrival. Delivery: I was called at approx 1605 and advised by RN that patient was 7cm and spontaneously pushing. I immediately began en route and on my arrival to patient room noted at the warmer with nursing staff and patient in bed with placenta undelivered. Please refer to nursing documentation for events prior to my arrival and for resuscitation details. Cord blood collected and placenta spontaneously delivered and noted to be intact. Fundus was noted to be firm with massage. Pitocin started. The vagina and cervix were inspected and 1st degree midline and left labial lacerations were noted. Noted to be hemostatic and did not require repair. Fundus was again noted to be firm Male born at 1609 with 1/7/9 weighing 3185g and measuring 19 in length, 13.5 inches head circumference, 12.75 inches chest circumference. Placenta noted to be intact with centrally inserted umbilical cord. Complications: Maternal none - refer to infant resuscitation documentation History History History 4 Term 2 0 Miscarriages/Ectopic 2 Living Children 2 A&P Assessment and plan (1) Spontaneous vaginal delivery: Coding Level of Care Code Acute Code for Chg Fwd Diagnoses Spontaneous vaginal delivery O80
--- NOTE | 2024-06-05 18:20 | PC.NURSE ---
1607: Delivery of head of baby 1609: Delivery of body of baby by Jackelyn Franklin RN 1610: Cord cut and clamped to take baby to warmer by nursing staff 1611: Dr Sanchez in room
[2024-06-05] MEDS: ibuprofen 800 mg tablet PO (20:29)
[2024-06-05] MEDS: docusate sodium 100 mg Capsule PO (20:29)
[2024-06-05] MEDS: lanolin oint 7 gm 1 APPLIC TOPICAL (22:46)
[2024-06-06 01:10] VITALS: BP 114/56; PULSE 76
[2024-06-06 04:49] VITALS: BP 112/70; PULSE 67
[2024-06-06 05:11] LABS: Mean Corpuscular HGB Conc 32.3 g/dL (30-55); Mean Corpuscular Volume 86.7 fl (85-98); Mean Platelet Volume 12.6 fL (7.4-10.4); Platelet Count 253 10^3/cmm (157-399); Red Blood Count 3.46 10^6/uL (3.85-5.65); White Blood Count 11.77 10^3/uL (3.29-11.43)
[2024-06-06 09:59] VITALS: BP 123/63; PULSE 64
[2024-06-06] MEDS: ferrous sulfate EC 325 mg Tablet PO (09:59)
[2024-06-06] MEDS: ibuprofen 800 mg tablet PO ×2 (09:59→18:29)
[2024-06-06] MEDS: docusate sodium 100 mg Capsule PO (10:00)
[2024-06-06] MEDS: PRENATAL VIT NO.130/IRON/FOLIC 1 EACH TABLET PO (10:00)
--- NOTE | 2024-06-06 18:28 | PM.OBGYDC ---
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 Delivery: I was called at approx 1605 and advised by RN that patient was 7cm and spontaneously pushing. I immediately began en route and on my arrival to patient room noted infant at the warmer with nursing staff and patient in bed with placenta undelivered. Please refer to nursing documentation for events prior to my arrival and for resuscitation details. Cord blood collected and placenta spontaneously delivered and noted to be intact. Fundus was noted to be firm with massage. Pitocin started. The vagina and cervix were inspected and 1st degree midline and left labial lacerations were noted. Noted to be hemostatic and did not require repair. Fundus was again noted to be firm Male born at 1609 with 1//9 weighing 3185g and measuring 19 in length, 13.5 inches head circumference, 12.75 inches chest circumference. Placenta noted to be intact with centrally inserted umbilical cord. Complications: Maternal none Infant- refer to resuscitation documentation course: Patient underwent on 06/05/24. course was uncomplicated. Following delivery patient ambulated well, tolerated a normal diet without nausea or vomiting. Pain was well controlled on PO medications, well, no leg/calf pain, no calf/leg swelling, normal urination, passing gas and normal bowel movements. Vaginal bleeding thin lochia and decreasing. labs 9.7 g/dL down from 11.2 g/dL on admission. She is started on iron supplementation and will be discharged home on supplementation. Follow-up planned for 2 and 6 weeks . Warning signs for endometritis, pre-eclampsia, DVT/PE, mastitis were reviewed, discussed additional warning signs including increased vaginal bleeding, worsening abdominal pain. Pelvic rest and activity precautions reviewed as well. She is discharged on 06/06/24 in stable condition. Information Peripartum Data: Infant Delivery Method: Vaginal Physical Exam Const: COMMON NORMALS: no acute distress, patient oriented x3, healthy appearing and alert Neck/C-Spine: COMMON NORMALS: no JVD Resp: COMMON NORMALS: normal respiratory effort and clear to auscultation bilaterally AUSCULTATION: clear to auscultation bilaterally Cardio: COMMON NORMALS: no JVD, regular rate, regular rhythm, S1 normal heart sound present, S2 normal heart sound present and No murmurs present (Cardio) RATE: regular rate RHYTHM: regular rhythm HEART SOUNDS: S1 normal heart sound present and S2 normal heart sound present : OTHER: Uterine fundus firm and at the umbilicus Extremity: NARRATIVE EXTREMITY EXAM: No LE edema Neuro: COMMON NORMALS: patient oriented x3 SENSORIUM/ORIENTATION: Yes alert History History History 4 Term 2 0 Miscarriages/Ectopic 2 Living Children 2 Discharge Data Studies Completed and Pending Pending at discharge Category Date Time Status Retype for Patiets ABO/Rh Routine Lab 06/05/24 16:48 Ordered Laboratory Results WBC 11.77 10^3/uL (3.29-11.43) H 06/06/24 04:55 RBC 3.46 10^6/uL (3.85-5.65) L 06/06/24 04:55 Hgb 9.70 g/dL (11.27-16.99) L 06/06/24 04:55 Hct 30.0 % (36-47) L 06/06/24 04:55 MCV 86.7 fl (85-98) 06/06/24 04:55 MCH 28.0 pg (27-33) 06/06/24 04:55 MCHC 32.3 g/dL (30-55) 06/06/24 04:55 RDW 13.0 % (12.1-15.1) 06/06/24 04:55 Plt Count 253 10^3/cmm (157-399) 06/06/24 04:55 MPV 12.6 fL (7.4-10.4) H 06/06/24 04:55 Neut % (Auto) 58.1 % 06/05/24 15:50 Lymph % (Auto) 33.3 % 06/05/24 15:50 Dougherty % (Auto) 7.0 % 06/05/24 15:50 Eos % (Auto) 0.4 % 06/05/24 15:50 Baso % (Auto) 0.2 % 06/05/24 15:50 Neut # (Auto) 7.51 10^3/uL (1.8-7.7) 06/05/24 15:50 Lymph # (Auto) 4.3 10^3/uL (0.8-4.8) 06/05/24 15:50 Dougherty # (Auto) 0.9 10^3/uL (0.2-0.9) 06/05/24 15:50 Eos # (Auto) 0.1 10^3/uL (0.0-0.8) 06/05/24 15:50 Baso # (Auto) 0.0 10^3/uL (0.0-0.1) 06/05/24 15:50 Nucleated RBC % (auto) 0 % 06/05/24 15:50 Nucleated RBCs # 0.0 /100WBC 06/05/24 15:50 Blood Type O Positive 06/05/24 15:50 Rho(D) Type Rh positive 06/05/24 15:50 Antibody Screen Negative 06/05/24 15:50 Vitals Last Vital Signs Temp 98.4 F 06/05/24 17:30 Pulse 64 06/06/24 09:59 Resp 18 06/05/24 17:30 BP 123/63 06/06/24 09:59 O2 Del Method Room Air 06/05/24 15:59 Results Labs OB ([facility]): Obstetrics 05/19/24 Blood Type O Positive 06/05/24 Antibody Screen Negative 06/05/24 Hct 30.0 % (36-47) L 06/06/24 Hgb 9.70 g/dL (11.27-16.99) L 06/06/24 Rho(D) Type Rh positive 06/05/24 Plt Count 253 10^3/cmm (157-399) 06/06/24 Discharge Plan Discharge Patient Disposition: Home Condition: Stable Prescriptions: New ibuprofen 800 mg Tablet 800 mg PO TID Qty: 90 0RF docusate sodium 100 mg Capsule 100 mg PO BID Qty: 60 0RF ferrous sulfate 325 mg (65 mg iron) Tablet,Delayed Release (Dr/Ec) 325 mg PO BREAKFAST Qty: 90 0RF Continued 1 tab PO DAILY Discharge Orders: Discharge Order (Routine); Ordered 06/06/24 Ordered By: Catherine Sanchez Discharge Diet: Usual diet Discharge Activity: Increase activity as tolerated Patient Instructions: Iron Supplements (By mouth) (Duofer, Fe-20, Bifera, Skyler-Iron), Ibuprofen (By mouth), Laxative, Stool Softeners (By mouth) (Doculax, Colace, Colace Clear, DSS), Depression (DC), Preeclampsia and Eclampsia After Delivery (GEN), Vaginal Delivery (DC), Hemorrhage (DC), OB Discharge Report, OB Food/Drug Interaction Guide, OB Care at Home, Opioid Safety, OB Home Care, Abnormal Bleeding Activity Restrictions/Additional Instructions: Pelvic rest for 6 weeks. Follow-up with Dr. Sanchez at 2 and 6 weeks . Discharge Attestations DATA CENTER MANAGER Time Spent in Discharge Care*: less than 30 min Status at Discharge: Cognitive status at discharge: cognitively intact, Behavioral status at discharge: cooperative, Coding Level of Care Code Acute Code for Chg Fwd Diagnoses Spontaneous vaginal delivery O80
[2024-06-06 18:32] VITALS: BP 128/79; PULSE 68; RESP 16; TEMP 36.5; O2SAT 99
[2024-06-06 19:24] VITALS: BP 124/75; PULSE 70; RESP 18; TEMP 36.7; O2SAT 99
== END 2024-06-06 19:25 | disposition home or self-care (01) | DRG 807 ==
LOC: OPOB 06-06 05:42 → OBGYN 06-06 05:42
PROVIDERS: Admitting Provider Family Medicine; PCP Family Medicine; Visit Provider Family Medicine
DX: O80 Encounter for full-term uncomplicated delivery (principal); Z37.0 Single live birth; Z3A.39 39 weeks gestation of pregnancy
CPT/HCPCS: 36415; 59025; 59409; 85025; 85027; 86850; 86900; 99211; J2590; J7120